=== PATIENT | female | born 1935 | race Caucasian/White ===

== ENCOUNTER 2018-12-23 18:01 | Emergency (ER) | payer MEDICARE ==
[~2018-12-23] VITALS: Ht 165.1 cm; Wt 56.7 kg
[2018-12-23] MEDS ORDERED: ACETAMINOPHEN ES 500 MG TABLET ONE (18:51)
[2018-12-23] MEDS ORDERED: ACETAMINOPHEN ES 500 MG TABLET PO ONE (19:00)
--- NOTE | 2018-12-23 19:00 | NUR ---
Pt in XR/CT for imaging studies. Report to RN Delroy
--- NOTE | 2018-12-23 19:09 | NUR ---
RECIEVED REPORT FROM ARACELI NEGRETE FOR [place]. PT TO CT
--- NOTE | 2018-12-23 19:24 | NUR ---
PT BACK FROM CT
--- NOTE | 2018-12-23 20:51 | NUR ---
PT TO RESTROOM WITH HELP FROM FAMILY MEMBER. PT AMBULATED WITH STEADY GAIT NOTED
--- NOTE | 2018-12-23 21:27 | NUR ---
pt left stating they do not need the imaging cd at this time. aware
--- NOTE | 2018-12-23 21:28 | NUR ---
Patient discharged to home in stable condition. Written and verbal after care instructions given. Patient verbalizes understanding of instruction. Pt ambulated with steady gait noted.
[2018-12-23 21:29] VITALS: BP 145/73
== END 2018-12-23 21:31 | disposition home or self-care (01) ==
LOC: ER 18:03
DX: S52.572A Other intraarticular fracture of lower end of left radius, initial encounter for closed fracture (principal); S00.83XA Contusion of other part of head, initial encounter; R94.31 Abnormal electrocardiogram [ECG] [EKG]; Z60.2 Problems related to living alone; W01.0XXA Fall on same level from slipping, tripping and stumbling without subsequent striking against object, initial encounter; Y93.89 Activity, other specified; Y92.090 Kitchen in other non-institutional residence as the place of occurrence of the external cause; Y99.8 Other external cause status
CPT/HCPCS: 70450-TC; 70486-TC; 72125-TC; 73110

== ENCOUNTER 2019-03-17 15:32 | Emergency (ER) | payer MEDICARE ==
[~2019-03-17] VITALS: Ht 162.6 cm; Wt 52.2 kg
[2019-03-17 15:54] VITALS: BP 140/74
== END 2019-03-17 18:01 | disposition home or self-care (01) ==
LOC: ER 15:33
DX: S20.212A Contusion of left front wall of thorax, initial encounter (principal); G89.29 Other chronic pain; M54.9 Dorsalgia, unspecified; Z60.2 Problems related to living alone; X58.XXXA Exposure to other specified factors, initial encounter; Y93.89 Activity, other specified; Y92.89 Other specified places as the place of occurrence of the external cause; Y99.8 Other external cause status
CPT/HCPCS: 71045-TC

== ENCOUNTER 2024-04-24 13:06 | Emergency (ER) | payer MEDICARE ==
[~2024-04-24] VITALS: Ht 165.1 cm; Wt 49.9 kg
[~2024-04-24 13:06] MED LIST: BACI30OI9 TP; IBUP-1953 PO; LIDO30AD10 TP
[2024-04-24 15:40] VITALS: BP 117/62; TEMP 98.4; O2SAT 99
== END 2024-04-24 15:40 | disposition home or self-care (01) ==
LOC: ER 13:10
DX: M16.11 Unilateral primary osteoarthritis, right hip (principal); M54.9 Dorsalgia, unspecified; Z60.2 Problems related to living alone
CPT/HCPCS: 73502